=== PATIENT | female | born 1990 | race Two or more races ===

== ENCOUNTER 2016-10-17 19:50 | Emergency (ER) | payer SELFPAY ==
[2016-10-17 21:05] VITALS: BP 102/60
== END 2016-10-17 23:28 | disposition left against medical advice (07) ==
LOC: ER 19:50
DX: Z53.21 Procedure and treatment not carried out due to patient leaving prior to being seen by health care provider (principal)

== ENCOUNTER 2016-10-23 19:12 | Emergency (ER) | payer BC ==
[2016-10-23] MEDS ORDERED: NORMAL SALINE 1000 ML 1,000 ML IV ONE ×2 (19:24→23:18)
[2016-10-23] MEDS ORDERED: LORAZEPAM INJ 2 MG/1 ML VIAL IV ONE ×2 (19:24→20:29)
--- NOTE | 2016-10-23 19:27 | ER Document Report ---
ED Seizure - General Chief Complaint: Seizure Stated Complaint: POSSIBLE SEIZURE Mode of Arrival: Medic Information source: Patient Notes: Patient is a 25-year-old female with a history of epilepsy who presents to the ER today for 4 seizures at work today. Patient states that the longest one was approximately 3 minutes she was told by coworkers and that she had shaking but no loss of bladder or bowel function. She was taking Dilantin but her neurologist recently took her off of that via phone call with the nurse as she called stating that she was having multiple seizures [id number] and he advised coming into the office but stopping the Dilantin at this time. She states that she has admitted in the office to see him yet. She's never been on any other seizure medication. She admits to slight headache at this time and states that she "feels shaky" but otherwise declines nausea, vomiting, no weakness or numbness. - Related Data Allergies/Adverse Reactions: Penicillins Allergy (Severe, Verified 07/24/16 17:51) Past Medical History - General Information source: Patient - Social History Smoking Status: Unknown if Ever Smoked Family History: Reviewed & Not Pertinent Neurological Medical History: Reports: Hx Migraine, Hx Seizures Psychiatric Medical History: Reports: Hx Attention Deficit Hyperactivity Disorder - Immunizations Immunizations up to date: Yes Hx Diphtheria, Pertussis, Tetanus Vaccination: Yes Review of Systems - Review of Systems Constitutional: No symptoms reported EENT: No symptoms reported Cardiovascular: No symptoms reported Respiratory: No symptoms reported Gastrointestinal: No symptoms reported Genitourinary: No symptoms reported Female Genitourinary: No symptoms reported Musculoskeletal: No symptoms reported Skin: No symptoms reported Hematologic/Lymphatic: No symptoms reported Neurological/Psychological: See HPI Physical Exam - Vital signs Vitals: Temp 98.4 F 10/23/16 19:20 - Notes Notes: PHYSICAL EXAMINATION: GENERAL: tired appearing, but alert and in no acute distress. HEAD: Atraumatic, normocephalic. EYES: Pupils equal round and reactive to light, extraocular movements intact, sclera anicteric, conjunctiva are normal. NECK: Normal range of motion, supple without lymphadenopathy LUNGS: CTAB and equal. No wheezes rales or rhonchi. HEART: Regular rate and rhythm without murmurs ABDOMEN: Soft, no tenderness. No guarding, no rebound BACK: no vertebral tenderness, normal ROM GI/: no CVA tenderness EXTREMITIES: Normal range of motion, no pitting edema. No cyanosis. NEUROLOGICAL: Good and equal strength bilaterally, Cranial nerves grossly intact. Normal sensory/motor exams. PSYCH: Normal mood, normal affect. SKIN: Warm, Dry, normal turgor, no rashes or lesions noted Course - Re-evaluation Re-evalutation: 10/24/16 00:29 Patient was given 2 small doses of Ativan she stated that she felt shaky and "felt a seizure coming on." Patient has not had a seizure here and has had 2 L of fluids, stating that her headache is completely gone, however patient's blood pressure has been low with her laying flat in the bed and sleeping. We have had to wake her up several times and sent her in the bed which always raises her blood pressure to normal. She is now walking around the emergency department without any issue, blood pressure is normalized. Patient was also given a loading dose IV of Keppra here. I will send her home on Keppra. 10/24/16 00:32 - Vital Signs Vital signs: Temp Pulse Resp BP Pulse Ox 98.4 F 14 107/68 100 10/23/16 19:20 10/23/16 23:56 10/23/16 23:56 10/23/16 23:56 - Laboratory Result Diagrams: 10/23/16 20:04 10/23/16 20:04 Laboratory results interpreted by me: 10/23/16 10/23/16 20:04 20:04 Eosinophils % 10.0 H Absolute Eosinophils 0.8 H BUN 6 L Discharge - Discharge Clinical Impression: Seizure Condition: Stable Disposition: HOME, SELF-CARE Additional Instructions: Return immediately for any new or worsening symptoms. Follow up with neurologist, call tomorrow to make followup appointment. Prescriptions: Levetiracetam [Keppra] 500 mg PO BID #28 tablet Forms: Return to Work
[2016-10-23 20:13] LABS: ABSOLUTE EOSINOPHILS # (AUTO) 0.8 10^3/uL (0.0-0.6); ABSOLUTE LYMPHOCYTES (AUTO) 2.6 10^3/uL (0.5-4.7); ABSOLUTE MONOCYTES (AUTO) 0.8 10^3/uL (0.1-1.4); BASOPHILS % (AUTO) 0.6 % (0-2); HEMATOCRIT 40.6 % (36.0-47.0); HEMOGLOBIN 13.9 g/dL (12.0-15.5); HGB HCT DIFFERENCE 1.1; LYMPHOCYTES % (AUTO) 31.6 % (13-45); MEAN CORPUSCULAR HEMOGLOBIN 30.8 pg (27.0-33.4); MEAN CORPUSCULAR HGB CONC 34.1 g/dL (32.0-36.0); MEAN CORPUSCULAR VOLUME 90 fl (80-97); MONOCYTES % (AUTO) 9.2 % (3-13); RED BLOOD COUNT 4.49 10^6/uL (3.72-5.28); RED CELL DISTRIBUTION WIDTH 13.6 % (11.5-14.0); SEGMENTED NEUTROPHILS % (AUTO) 48.6 % (42-78); WHITE BLOOD COUNT 8.3 10^3/uL (4.0-10.5)
[2016-10-23 20:30] LABS: ALANINE AMINOTRANSFERASE 22 U/L (9-52); ALBUMIN 4.4 g/dL (3.5-5.0); ALKALINE PHOSPHATASE 42 U/L (38-126); ANION GAP 9 (5-19); ASPARTATE AMINO TRANSFERASE 21 U/L (14-36); BILIRUBIN,TOTAL 0.6 mg/dL (0.2-1.3); BLOOD UREA NITROGEN 6 mg/dL (7-20); CALCIUM 9.7 mg/dL (8.4-10.2); CARBON DIOXIDE 24 mmol/L (22-30); CHLORIDE 105 mmol/L (98-107); CREATININE RESULT 0.77 mg/dL (0.52-1.25); GLUCOSE 89 mg/dL (75-110); POTASSIUM 4.2 mmol/L (3.6-5.0); SODIUM 138.3 mmol/L (137-145)
[2016-10-23] MEDS ORDERED: LEVETIRACETAM 1500 MG/NACL-ISO 100 ML IV ONE (21:00)
[2016-10-24 00:39] VITALS: BP 100/66
== END 2016-10-24 00:50 | disposition home or self-care (01) ==
LOC: ER 19:12
DX: G40.909 Epilepsy, unspecified, not intractable, without status epilepticus (principal); R51 Headache; Z88.0 Allergy status to penicillin
CPT/HCPCS: 96376; 99284; 96361; 96374; 96375; 36415; 84703; 85025; 80053; J2060; J7030; J1953

== ENCOUNTER 2016-11-22 16:59 | Emergency (ER) | payer BC ==
--- NOTE | 2016-11-22 17:44 | ER Document Report ---
ED Medical Screen (RME) - General Stated Complaint: POSSIBLE SEIZURE Notes: patient is a 25 year old female p/w c/o seizure and has had 5 seizures while on keppra that she was started on when she was last seen here. she has not followed up with her neurologist since she started the medication. she is due to see her neurologist on friday I have greeted and performed a rapid initial assessment of this patient. A comprehensive ED assessment and evaluation of the patient, analysis of test results and completion of the medical decision making process will be conducted by additional ED providers. TRAVEL OUTSIDE OF THE [place] IN LAST 30 DAYS: No - Related Data Allergies/Adverse Reactions: Penicillins Allergy (Severe, Verified 11/22/16 17:42) Past Medical History Neurological Medical History: Reports: Hx Migraine, Hx Seizures Renal/ Medical History: Denies: Hx Peritoneal Dialysis Psychiatric Medical History: Reports: Hx Attention Deficit Hyperactivity Disorder Past Surgical History: Reports: Hx Orthopedic Surgery - R leg - Immunizations Immunizations up to date: Yes Hx Diphtheria, Pertussis, Tetanus Vaccination: Yes Physical Exam - Vital signs Vitals: Temp Pulse Resp BP Pulse Ox 97.9 F 63 14 102/53 L 99 11/22/16 17:24 11/22/16 17:24 11/22/16 17:24 11/22/16 17:24 11/22/16 17:24 Course - Vital Signs Vital signs: Temp Pulse Resp BP Pulse Ox 97.9 F 63 14 102/53 L 99 11/22/16 17:24 11/22/16 17:24 11/22/16 17:24 11/22/16 17:24 11/22/16 17:24
[2016-11-22 18:25] LABS: ABSOLUTE BASOPHILS # (AUTO) 0.1 10^3/uL (0.0-0.2); ABSOLUTE EOSINOPHILS # (AUTO) 0.6 10^3/uL (0.0-0.6); ABSOLUTE LYMPHOCYTES (AUTO) 1.8 10^3/uL (0.5-4.7); ABSOLUTE MONOCYTES (AUTO) 0.6 10^3/uL (0.1-1.4); BASOPHILS % (AUTO) 0.7 % (0-2); EOSINOPHILS % (AUTO) 7.8 % (0-6); HEMOGLOBIN 13.4 g/dL (12.0-15.5); HGB HCT DIFFERENCE 0.2; LYMPHOCYTES % (AUTO) 22.3 % (13-45); MEAN CORPUSCULAR HEMOGLOBIN 30.8 pg (27.0-33.4); MEAN CORPUSCULAR HGB CONC 33.5 g/dL (32.0-36.0); MEAN CORPUSCULAR VOLUME 92 fl (80-97); RED BLOOD COUNT 4.35 10^6/uL (3.72-5.28); RED CELL DISTRIBUTION WIDTH 13.2 % (11.5-14.0); SEGMENTED NEUTROPHILS % (AUTO) 62.2 % (42-78)
[2016-11-22 18:45] LABS: ALANINE AMINOTRANSFERASE 21 U/L (9-52); ALKALINE PHOSPHATASE 49 U/L (38-126); ANION GAP 8 (5-19); ASPARTATE AMINO TRANSFERASE 20 U/L (14-36); BILIRUBIN,TOTAL 0.5 mg/dL (0.2-1.3); BLOOD UREA NITROGEN 12 mg/dL (7-20); CALCIUM 9.5 mg/dL (8.4-10.2); CARBON DIOXIDE 26 mmol/L (22-30); CHLORIDE 104 mmol/L (98-107); CREATININE RESULT 0.93 mg/dL (0.52-1.25); GLUCOSE 84 mg/dL (75-110); POTASSIUM 4.2 mmol/L (3.6-5.0); SODIUM 137.8 mmol/L (137-145); TOTAL PROTEIN 7.3 g/dL (6.3-8.2)
[2016-11-22] MEDS ORDERED: NORMAL SALINE 1000 ML 1,000 ML IV ONE (20:41)
[2016-11-22] MEDS ORDERED: LEVETIRACETAM 1000 MG/NACL-ISO 100 ML IV ONE (20:41)
--- NOTE | 2016-11-22 20:44 | ER Document Report ---
ED Seizure - General Chief Complaint: Seizure Stated Complaint: POSSIBLE SEIZURE Time seen by provider: 20:40 Notes: Patient is a 25-year-old female with a history of epilepsy that comes emergency department for chief complaint of seizure, patient states she was told that she had 2 separate seizures which lasted a total of about 5 minutes at work prior to arrival. Patient states she felt a numbness in her hands and laid down before the seizures occurred. She denies remembering the seizures. Patient is taking Keppra 1000 g twice a day, was given Keppra here last month and had this increased by her primary care provider, has a follow-up appointment with neurology planned for next week (Friday), has not seen a neurologist in years. Patient states she had not had a seizure for over a year until last month and was not even on Dilantin. Patient denies fever, lack of sleep, regular alcohol use, or any other symptoms out of the ordinary. She denies any current symptoms. - Related Data Allergies/Adverse Reactions: Penicillins Allergy (Severe, Verified 11/22/16 17:42) Past Medical History - General Information source: Patient - Social History Smoking Status: Current Every Day Smoker Chew tobacco use (# tins/day): No Frequency of alcohol use: Occasional Drug Abuse: None Lives with: Family Family History: Reviewed & Not Pertinent Patient has suicidal ideation: No Patient has homicidal ideation: No Neurological Medical History: Reports: Hx Migraine, Hx Seizures Renal/ Medical History: Denies: Hx Peritoneal Dialysis Psychiatric Medical History: Reports: Hx Attention Deficit Hyperactivity Disorder Past Surgical History: Reports: Hx Orthopedic Surgery - R leg - Immunizations Immunizations up to date: Yes Hx Diphtheria, Pertussis, Tetanus Vaccination: Yes Review of Systems - Review of Systems Constitutional: No symptoms reported EENT: No symptoms reported Cardiovascular: No symptoms reported Respiratory: No symptoms reported Gastrointestinal: No symptoms reported Genitourinary: No symptoms reported Female Genitourinary: No symptoms reported Musculoskeletal: No symptoms reported Skin: No symptoms reported Hematologic/Lymphatic: No symptoms reported Neurological/Psychological: See HPI Physical Exam - Vital signs Vitals: Temp Pulse Resp BP Pulse Ox 97.9 F 63 14 102/53 L 99 11/22/16 17:24 11/22/16 17:24 11/22/16 17:24 11/22/16 17:24 11/22/16 17:24 Interpretation: Normal - General General appearance: Appears well, Alert In distress: None - Patient alert and well-appearing, conversational - HEENT Head: Normocephalic, Atraumatic Eyes: Normal Conjunctiva: Normal Extraocular movements intact: Yes Eyelashes: Normal Pupils: PERRL Nasal: Normal Mouth/Lips: Normal Mucous membranes: Normal Pharynx: Normal Neck: Normal - Respiratory Respiratory status: No respiratory distress Chest status: Nontender Breath sounds: Normal. No: Decreased air movement, Wheezing Chest palpation: Normal - Cardiovascular Rhythm: Regular. No: Tachycardia Heart sounds: Normal auscultation, S1 appreciated, S2 appreciated Murmur: No - Abdominal Inspection: Normal Distension: No distension Bowel sounds: Normal Tenderness: Nontender. No: Tender, Guarding - Back Back: Normal, Nontender. 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 Unremarkable vital signs. CBC, CMP, magnesium all unremarkable. HCG is negative. Urinalysis obtained, shows positive nitrites, white blood cells, leukocyte esterase, consistent with urinary tract infection. Culture place, patient given a dose of Levaquin here, patient also given a IV loading dose of Keppra, Keppra lab level is still pending as a send out. Patient monitored here for several hours, no change, no complaints. Patient will be placed on Cipro, instructed to continue Keppra, patient has a close follow-up arranged with her neurologist already. Discussed return precautions including returned/increased seizures, fever, vomiting, etc. Patient states understanding and agreement. - Vital Signs Vital signs: Temp Pulse Resp BP Pulse Ox 98.9 F 78 19 104/55 L 100 11/23/16 00:11 11/23/16 00:11 11/23/16 00:11 11/23/16 00:11 11/23/16 00:11 - Laboratory Result Diagrams: 11/22/16 18:05 11/22/16 18:05 Laboratory results interpreted by me: 11/22/16 11/22/16 18:05 21:50 Eosinophils % 7.8 H Urine Nitrite POSITIVE H Ur Leukocyte Esterase SMALL H Discharge - Discharge Clinical Impression: Seizure disorder Urinary tract infection Qualifiers: Urinary tract infection type: site unspecified Hematuria presence: without hematuria Qualified Code(s): N39.0 - Urinary tract infection, site not specified Condition: Stable Disposition: HOME, SELF-CARE Additional Instructions: Workup is normal except showing a urinary tract infection. Your Keppra level blood work is still running in our laboratory (send out lab which can take days) . Take the antibiotic as directed for urinary tract infection, afterwards take the Diflucan to avoid a yeast infection. Continue your Keppra, follow up with Neurology on Friday. Return to the emergency department for any concerning or worsening symptoms. Prescriptions: Ciprofloxacin HCl [Cipro 500 mg Tablet] 500 mg PO BID #10 tablet Fluconazole [Diflucan] 150 mg PO ONCE PRN #1 tablet PRN Reason: Forms: Return to Work
[2016-11-22 20:53] LABS: MAGNESIUM 2.1 mg/dL (1.6-2.3)
[2016-11-22 20:55] LABS: ALCOHOL < 10 mg/dL (NONE DETECTED)
[2016-11-22 22:05] LABS: APPEARANCE,URINE SLIGHTLY-CLOUDY; BILIRUBIN,URINE NEGATIVE (NEGATIVE); GLUCOSE, URINE NEGATIVE (NEGATIVE); KETONES,URINE NEGATIVE (NEGATIVE); LEUKOCYTE ESTERASE,URINE SMALL (NEGATIVE); NITRITE,URINE POSITIVE (NEGATIVE); PROTEIN,URINE NEGATIVE (NEGATIVE); URINE SPECIFIC GRAVITY 1.012; UROBILINOGEN,URINE NEGATIVE mg/dL (<2.0)
[2016-11-22] MEDS ORDERED: LEVOFLOXACIN 500 MG/D5W RTU 100 ML IV ONE (22:20)
[2016-11-23] MEDS ORDERED: LEVOFLOXACIN 500 MG TABLET PO ONE (00:01)
[2016-11-23 00:12] VITALS: BP 104/55
== END 2016-11-23 00:10 | disposition home or self-care (01) ==
LOC: ER 16:59
DX: G40.909 Epilepsy, unspecified, not intractable, without status epilepticus (principal); Z79.899 Other long term (current) drug therapy; N39.0 Urinary tract infection, site not specified; F17.200 Nicotine dependence, unspecified, uncomplicated; Z88.0 Allergy status to penicillin
CPT/HCPCS: 36415; 80053; 80177; 80307; 81001; 83735; 84703; 85025; 87086; 87088; 87186; 99284

== ENCOUNTER → 2016-12-06 | Outpatient (CLI) | payer BC | LOC: RAD 19:16 | PROVIDERS: ATTEND Specialist | DX: G40.909 Epilepsy, unspecified, not intractable, without status epilepticus (principal) | CPT/HCPCS: 70553; A9577 ==

== ENCOUNTER 2017-10-01 09:39 | Emergency (ER) | payer SELFPAY ==
[2017-10-01] MEDS ORDERED: LIDOCAINE 2% VISCOUS SOLN 20 ML UDCUP PO ONE (10:00)
[2017-10-01] MEDS ORDERED: CLINDAMYCIN HCL 150 MG CAPSULE PO ONE (10:00)
--- NOTE | 2017-10-01 10:01 | ER Document Report ---
ED Oral Problem - General Chief Complaint: Toothache Stated Complaint: TOOTH PAIN Time Seen by Provider: 10/01/17 09:50 Mode of Arrival: Ambulatory Information source: Patient Notes: 26-year-old female presents to ED for complaint of dental pain for 6 months on tooth #18 the last 6 months. She states she needs to get it fixed but has not had the insurance to pay for it yet. TRAVEL OUTSIDE OF THE [place] IN LAST 30 DAYS: No - HPI Patient complains to provider of: Toothache Onset: Other - Month Onset: Gradual Quality of pain: Achy, Throbbing Severity: Severe Pain Level: 5 Associated symptoms: Earache - Due to the, Toothache Worsened by: Nothing Relieved by: Nothing Similar symptoms previously: Yes Recently seen / treated by doctor/dentist: No - Related Data Allergies/Adverse Reactions: Penicillins Allergy (Severe, Verified 10/01/17 09:39) Past Medical History - General Information source: Patient - Social History Smoking Status: Current Every Day Smoker Cigarette use (# per day): Yes - Third pack per day Chew tobacco use (# tins/day): No Smoking Education Provided: Yes - Less than 2 minutes Frequency of alcohol use: None Drug Abuse: None Occupation: [employer] Lives with: Family Family History: Arthritis, DM, Hypertension, Malignancy. denies: CAD, COPD, CVA , Hyperlipidemia, Thyroid Disfunction Patient has suicidal ideation: No Patient has homicidal ideation: No - Past Medical History Cardiac Medical History: Reports: None Pulmonary Medical History: Reports: None EENT Medical History: Reports: None Neurological Medical History: Reports: Hx Migraine, Hx Seizures Endocrine Medical History: Reports: None Renal/ Medical History: Reports: None Malignancy Medical History: Reports: None GI Medical History: Reports: None Musculoskeltal Medical History: Reports None Skin Medical History: Reports None Psychiatric Medical History: Reports: Hx Attention Deficit Hyperactivity Disorder Traumatic Medical History: Reports: None Infectious Medical History: Reports: None Past Surgical History: Reports: Hx Orthopedic Surgery - R leg - Immunizations Immunizations up to date: Yes Hx Diphtheria, Pertussis, Tetanus Vaccination: Yes Review of Systems - Review of Systems Constitutional: No symptoms reported EENT: Ear pain, Dental problem Cardiovascular: No symptoms reported Respiratory: No symptoms reported Gastrointestinal: No symptoms reported Genitourinary: No symptoms reported Female Genitourinary: No symptoms reported Musculoskeletal: No symptoms reported Skin: No symptoms reported Hematologic/Lymphatic: No symptoms reported Neurological/Psychological: No symptoms reported -: Yes All other systems reviewed and negative Physical Exam - Vital signs Vitals: Temp Pulse Resp BP Pulse Ox 98.6 F 85 12 117/64 98 10/01/17 09:45 10/01/17 09:45 10/01/17 09:45 10/01/17 09:45 10/01/17 09:45 Interpretation: Normal - General General appearance: Appears well, Alert - HEENT Head: Normocephalic, Atraumatic Eyes: Normal Pupils: PERRL Ears: Normal External canal: Normal Tympanic membrane: Normal Sinus: Normal Nasal: Normal Mouth/Lips: Caries Teeth diagram: 1 - Dental cavity Pharynx: Normal Neck: Normal - Respiratory Respiratory status: No respiratory distress Chest status: Nontender Breath sounds: Normal Chest palpation: Normal - Cardiovascular Rhythm: Regular Heart sounds: Normal auscultation Murmur: No - Abdominal Inspection: Normal Distension: No distension Bowel sounds: Normal Tenderness: Nontender Organomegaly: No organomegaly - Back Back: Normal, Nontender - Extremities General upper extremity: Normal inspection, Nontender, Normal color, Normal ROM , Normal temperature General lower extremity: Normal inspection, Nontender, Normal color, Normal ROM , Normal temperature, Normal weight bearing. No: Lyndsay's sign - Neurological Neuro grossly intact: Yes Cognition: Normal Orientation: AAOx4 Payal Coma Scale Eye Opening: Spontaneous [place] Coma Scale Verbal: Oriented [place] Coma Scale Motor: Obeys Commands [place] Coma Scale Total: 15 Speech: Normal Motor strength normal: LUE, RUE, LLE, RLE Sensory: Normal - Psychological Associated symptoms: Normal affect, Normal mood - Skin Skin Temperature: Warm Skin Moisture: Dry Skin Color: Normal Course - Vital Signs Vital signs: Temp Pulse Resp BP Pulse Ox 98.6 F 73 18 116/71 99 10/01/17 10:22 10/01/17 10:22 10/01/17 10:22 10/01/17 10:22 10/01/17 10:22 Discharge - Discharge Clinical Impression: Pain due to dental caries Condition: Stable Disposition: HOME, SELF-CARE Instructions: Dentist Additional Instructions: TOOTHACHE: Your pain is due to dental decay. The tooth must be repaired in order for you to feel better. You will, therefore, be referred to a dentist. We do not have dentists on the staff at [facility]. Severe swelling or drainage around a tooth usually means a dental abscess. This also requires evaluation and treatment by the dentist, but antibiotics may be prescribed while awaiting dental treatment. You should be rechecked immediately if you develop major swelling of the face, increasing pain, a lump in the jaw or gums, headache, difficulty swallowing, or fever. CLINDAMYCIN: You have been given a prescription for the antibiotic clindamycin. It is often prescribed for infections in the mouth, such as dental infections or abscesses, and for skin infections due to MRSA. It's important that you take all the medication, unless instructed otherwise by your physician. Failure to complete the entire course can result in relapse of your condition. Common side effects of antibiotics include nausea, intestinal cramping, or diarrhea. Women may develop vaginal yeast infections, and babies can get yeast (thrush) in the mouth following the use of antibiotics. Contact your physician if you develop significant side effects from this medication. Allergy to this antibiotic can result in hives, wheezing, faintness, or itching. If symptoms of allergy occur, stop the medication and call the doctor. FOLLOW-UP CARE: You have been referred for follow-up care to the dentists listed below. Call the dentists office for an appointment as you were instructed or within the next two days. If you experience worsening or a significant change in your symptoms, notify the physician immediately or return to the Emergency Department at any time for re-evaluation. [facility] [address] [place], [place] Friday mornings, by appointment [facility] [address] [place] [address] [facility] [address] [facility] [address] [place] Emergency Department [facility] [address] [place] [address]'s [email or web address] [address] [place] [address] Friday- 8:00am to 5:00 pm Will see patients from other [facility]. Charges based on income and family size and accepts Medicare, Medicaid, and Insurances Will pull molars [facility] Student [facility] [id number] Hours of Operation 8:00 am - 4:30 pm weekdays The following dental offices accept Medicaid: [facility] [address] [place] Dr[address] Dr. Ann Dr. Hill Arslan Lyle, Bubba, and Cora oral surgery Dr. Aguilera ([place]) Dr. Gotti ([place]) [facility] Drs. Kowalski and Rafat ([place]) Dr. Grover ([place]) [facility] Dr. C[place]ton ([place]) Drs. Kowalski and ([place]) Medicaid Care Line Forms: Smoking Cessation Education, Return to Work
[2017-10-01 10:29] VITALS: BP 116/71
== END 2017-10-01 10:22 | disposition home or self-care (01) ==
LOC: ER 09:39
DX: K02.9 Dental caries, unspecified (principal); K08.89 Other specified disorders of teeth and supporting structures; F17.210 Nicotine dependence, cigarettes, uncomplicated
CPT/HCPCS: 99282; J3490

== ENCOUNTER 2018-04-07 15:17 | Emergency (ER) | payer SELFPAY ==
[2018-04-07] MEDS ORDERED: RINGERS SOLUTION,LACTATED 1,000 ML IV ONE (15:52)
--- NOTE | 2018-04-07 15:54 | ER Document Report ---
ED General - General Chief Complaint: Seizure Stated Complaint: NEAR SYNCOPAQL EPISODE Time Seen by Provider: 04/07/18 15:51 Mode of Arrival: Ambulatory Information source: Patient Notes: Chief complaint: Syncope History of complain:( obtained from----patient)27 years old female presents today with an episode of syncope, she has a molar tooth cavitation because of that she could not eat anything proper for the last 3-4 days. And went to work and working hard and one-point started feeling dizzy. Went to the banners this to inform that during that time she syncopized. Briefly. Subsequently brought to the ED. She is currently alert oriented. No head injury. No neck pain neck stiffness. No focal neurological deficit. Onset: As above Duration: Sudden Severity: Moderate Quality: Not applicable Context: Dehydration Exacerbating factor and relieving factors: Standing up REVIEW OF SYSTEMS: CONSTITUTIONAL : Denies fever, chills, or sweats. Denies recent illness. EENT: Denies eye, ear, throat, or mouth pain or symptoms. Denies nasal or sinus congestion or discharge. Denies throat, tongue, or mouth swelling or difficulty swallowing. CARDIOVASCULAR: Denies chest pain. Denies palpitations or racing or irregular heart beat. Denies ankle edema. RESPIRATORY: Denies cough, cold, or chest congestion. Denies shortness of breath, difficulty breathing, or wheezing. GASTROINTESTINAL: Denies distention. Denies nausea, vomiting, or diarrhea. Denies blood in vomitus, stools, or per rectum. Denies black, tarry stools. Denies constipation. GENITOURINARY: Denies difficulty urinating, painful urination, burning, frequency, blood in urine, or discharge. FEMALE GENITOURINARY: Denies vaginal bleeding, heavy or abnormal periods, irregular periods. Denies vaginal discharge or odor. MUSCULOSKELETAL: Denies back or neck pain or stiffness. Denies joint pain or swelling. SKIN: Denies rash, lesions or sores. HEMATOLOGIC : Denies easy bruising or bleeding. LYMPHATIC: Denies swollen, enlarged glands. NEUROLOGICAL: Denies confusion or altered mental status. Denies passing out or loss of consciousness. Denies dizziness or lightheadedness. Denies headache. Denies weakness or paralysis or loss of use of either side. Denies problems with gait or speech. Denies sensory loss, numbness, or tingling. Denies seizures. PSYCHIATRIC: Denies anxiety or stress. Denies depression, suicidal ideation, or homicidal ideation. ALL OTHER SYSTEMS REVIEWED AND NEGATIVE. PHYSICAL EXAMINATION: GENERAL: Well-appearing, well-nourished and in no acute distress. HEAD: Atraumatic, normocephalic. EYES: Pupils equal round and reactive to light, extraocular movements intact, conjunctiva are normal. ENT: Nares patent, oropharynx clear without exudates. Moist mucous membranes. NECK: Normal range of motion, supple without lymphadenopathy LUNGS: Breath sounds clear to auscultation bilaterally and equal. No wheezes rales or rhonchi. HEART: Regular rate and rhythm without murmurs ABDOMEN: Soft, nontender, nondistended abdomen. No guarding, no rebound. No masses appreciated. Examination of genitals-deferred Musculoskeletal: Normal range of motion, no pitting or edema. No cyanosis. NEUROLOGICAL: Cranial nerves grossly intact. Normal speech, normal gait. Normal sensory, motor exams PSYCH: Normal mood, normal affect. SKIN: Warm, Dry, normal turgor, no rashes or lesions noted. Dictation was performed using [employer] voice recognition software TRAVEL OUTSIDE OF THE [place] IN LAST 30 DAYS: No - Related Data Allergies/Adverse Reactions: Penicillins Allergy (Severe, Verified 04/07/18 15:53) Past Medical History - Social History Smoking Status: Current Every Day Smoker Chew tobacco use (# tins/day): No Frequency of alcohol use: Rare Drug Abuse: None Family History: Arthritis, DM, Hypertension, Malignancy. denies: CAD, COPD, CVA , Hyperlipidemia, Thyroid Disfunction Patient has suicidal ideation: No Patient has homicidal ideation: No Neurological Medical History: Reports: Hx Migraine, Hx Seizures Renal/ Medical History: Denies: Hx Peritoneal Dialysis Psychiatric Medical History: Reports: Hx Attention Deficit Hyperactivity Disorder Past Surgical History: Reports: Hx Orthopedic Surgery - R leg - Immunizations Immunizations up to date: Yes Hx Diphtheria, Pertussis, Tetanus Vaccination: Yes Review of Systems - Review of Systems Notes: Dictated Physical Exam - Vital signs Vitals: Temp Pulse Resp BP Pulse Ox 98.5 F 66 16 100/59 L 99 04/07/18 15:57 04/07/18 15:57 04/07/18 15:57 04/07/18 15:57 04/07/18 15:57 - Notes Notes: Dictated Course - Re-evaluation Re-evalutation: 04/07/18 16:50 Given IV fluids - Vital Signs Vital signs: Temp Pulse Resp BP Pulse Ox 98.5 F 66 16 100/59 L 99 04/07/18 15:57 04/07/18 15:57 04/07/18 15:57 04/07/18 15:57 04/07/18 15:57 - Laboratory Result Diagrams: 04/07/18 16:13 04/07/18 16:13 Discharge - Discharge Clinical Impression: Dehydration, Pain, dental Syncope Qualifiers: Syncope type: vasovagal syncope Qualified Code(s): R55 - Syncope and collapse Disposition: AGAINST MEDICAL ADVICE
[2018-04-07 16:04] VITALS: BP 100/59
[2018-04-07 16:30] LABS: ABSOLUTE EOSINOPHILS # (AUTO) 0.4 10^3/uL (0.0-0.6); ABSOLUTE LYMPHOCYTES (AUTO) 1.9 10^3/uL (0.5-4.7); ABSOLUTE MONOCYTES (AUTO) 0.6 10^3/uL (0.1-1.4); ABSOLUTE NEUT (AUTO) 4.9 10^3/uL (1.7-8.2); BASOPHILS % (AUTO) 0.4 % (0-2); HEMATOCRIT 37.3 % (36.0-47.0); HEMOGLOBIN 12.4 g/dL (12.0-15.5); LYMPHOCYTES % (AUTO) 24.4 % (13-45); MEAN CORPUSCULAR HGB CONC 33.3 g/dL (32.0-36.0); MEAN CORPUSCULAR VOLUME 93 fl (80-97); MONOCYTES % (AUTO) 8.1 % (3-13); PLATELET COUNT 216 10^3/uL (150-450); RED BLOOD COUNT 4.01 10^6/uL (3.72-5.28); RED CELL DISTRIBUTION WIDTH 13.4 % (11.5-14.0); SEGMENTED NEUTROPHILS % (AUTO) 62.1 % (42-78); TOTAL CELLS COUNTED % (AUTO) 100 %; WHITE BLOOD COUNT 7.9 10^3/uL (4.0-10.5)
== END 2018-04-07 16:57 | disposition left against medical advice (07) ==
LOC: ER 15:17
DX: E86.0 Dehydration (principal); K08.9 Disorder of teeth and supporting structures, unspecified; R55 Syncope and collapse; R42 Dizziness and giddiness; F17.200 Nicotine dependence, unspecified, uncomplicated
CPT/HCPCS: 99284; 96360; 36415; 85025; J7120

== ENCOUNTER 2018-05-29 13:37 | Emergency (ER) | payer SELFPAY ==
[2018-05-29 13:55] VITALS: BP 104/54
[2018-05-29] MEDS ORDERED: IBUPROFEN 600 MG TABLET PO ONE (14:28)
[2018-05-29] MEDS ORDERED: CLINDAMYCIN HCL 150 MG CAPSULE PO ONE (14:28)
[2018-05-29] MEDS ORDERED: BUPIVACAINE HCL 0.5%-EPI 1:200000 INJ/PF 30 ML VIAL INJ ONE (14:48)
--- NOTE | 2018-05-29 14:48 | ER Document Report ---
ED Oral Problem - General Chief Complaint: Toothache Stated Complaint: TOOTHACHE Time Seen by Provider: 05/29/18 14:22 Mode of Arrival: Ambulatory Information source: Patient Notes: 27-year-old female presented ED for complaint of dental pain to tooth number form 5 with a dental abscess between them. She states she has had pain in this area for a while. She states the abscess just developed in the last couple days and now she is having extreme pain to the area. She is alert and oriented respirations regular and unlabored speaking in full sentences. TRAVEL OUTSIDE OF THE [place] IN LAST 30 DAYS: No - HPI Patient complains to provider of: Jaw pain, Toothache Onset: Other - Several days Onset: Gradual Quality of pain: Sharp, Throbbing Severity: Severe Pain Level: 5 Associated symptoms: Toothache Worsened by: Heat Relieved by: Nothing Similar symptoms previously: Yes Recently seen / treated by doctor/dentist: No - Related Data Allergies/Adverse Reactions: Penicillins Allergy (Severe, Verified 04/07/18 15:53) Past Medical History - General Information source: Patient - Social History Smoking Status: Current Every Day Smoker Cigarette use (# per day): Yes - 1/3 ppd Smoking Education Provided: Yes - 4 min Frequency of alcohol use: None Drug Abuse: None 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 denies: CAD, COPD, CVA , Hyperlipidemia, Thyroid Disfunction Patient has suicidal ideation: No Patient has homicidal ideation: No - Past Medical History Cardiac Medical History: Reports: None Pulmonary Medical History: Reports: None EENT Medical History: Reports: None Neurological Medical History: Reports: Hx Migraine, Hx Seizures Endocrine Medical History: Reports: None Renal/ Medical History: Reports: None Malignancy Medical History: Reports: None GI Medical History: Reports: None Musculoskeletal Medical History: Reports None Skin Medical History: Reports None Psychiatric Medical History: Reports: Hx Attention Deficit Hyperactivity Disorder Traumatic Medical History: Reports: None Infectious Medical History: Reports: None Past Surgical History: Reports: Hx Orthopedic Surgery - R leg - Immunizations Immunizations up to date: Yes Hx Diphtheria, Pertussis, Tetanus Vaccination: Yes Review of Systems - Review of Systems Constitutional: No symptoms reported EENT: Mouth pain, Dental problem Cardiovascular: No symptoms reported Respiratory: No symptoms reported Gastrointestinal: No symptoms reported Genitourinary: No symptoms reported Female Genitourinary: No symptoms reported Musculoskeletal: No symptoms reported Skin: No symptoms reported Hematologic/Lymphatic: No symptoms reported Neurological/Psychological: No symptoms reported -: Yes All other systems reviewed and negative Physical Exam - Vital signs Vitals: Temp Pulse Resp BP Pulse Ox 98.5 F 71 18 104/54 L 96 05/29/18 13:53 05/29/18 13:53 05/29/18 13:53 05/29/18 13:53 05/29/18 13:53 Interpretation: Normal - General General appearance: Appears well, Alert - HEENT Head: Normocephalic, Atraumatic Eyes: Normal Pupils: PERRL Ears: Normal External canal: Normal Tympanic membrane: Normal Sinus: Normal Nasal: Normal Mouth/Lips: Caries Mucous membranes: Normal Teeth diagram: 1 - Swelling tenderness dental abscess Pharynx: Normal Neck: Anterior cervical chain - Respiratory Respiratory status: No respiratory distress Chest status: Nontender Breath sounds: Normal Chest palpation: Normal - Cardiovascular Rhythm: Regular Heart sounds: Normal auscultation Murmur: No - Abdominal Inspection: Normal Distension: No distension Bowel sounds: Normal Tenderness: Nontender Organomegaly: No organomegaly - Back Back: Normal, Nontender - Extremities General upper extremity: Normal inspection, Nontender, Normal color, Normal ROM , Normal temperature General lower extremity: Normal inspection, Nontender, Normal color, Normal ROM , Normal temperature, Normal weight bearing. No: Lyndsay's sign - Neurological Neuro grossly intact: Yes Cognition: Normal Orientation: AAOx4 Payal Coma Scale Eye Opening: Spontaneous Payal Coma Scale Verbal: Oriented Warden Coma Scale Motor: Obeys Commands Payal Coma Scale Total: 15 Speech: Normal Motor strength normal: LUE, RUE, LLE, RLE Sensory: Normal - Psychological Associated symptoms: Normal affect, Normal mood - Skin Skin Temperature: Warm Skin Moisture: Dry Skin Color: Normal Course - Re-evaluation Re-evalutation: 05/29/18 16:07 Dental block given by Dr. Middleton with Sensorcaine. Abscess was then opened with 18-gauge needle with return of large amount of purulent drainage. Patient was sent home with prescription for ibuprofen and clindamycin. Patient to follow- up with dentist as soon as possible. Patient was instructed to use warm salt water gargles for the abscess. - Vital Signs Vital signs: Temp Pulse Resp BP Pulse Ox 98.5 F 71 18 104/54 L 96 05/29/18 13:53 05/29/18 13:53 05/29/18 13:53 05/29/18 13:53 05/29/18 13:53 Discharge - Discharge Clinical Impression: Pain due to dental caries Condition: Stable Disposition: HOME, SELF-CARE Additional Instructions: TOOTHACHE: Your pain is due to dental decay. The tooth must be repaired in order for you to feel better. You will, therefore, be referred to a dentist. We do not have dentists on the staff at [facility]. Severe swelling or drainage around a tooth usually means a dental abscess. This also requires evaluation and treatment by the dentist, but antibiotics may be prescribed while awaiting dental treatment. You should be rechecked immediately if you develop major swelling of the face, increasing pain, a lump in the jaw or gums, headache, difficulty swallowing, or fever. CLINDAMYCIN: You have been given a prescription for the antibiotic clindamycin. It is often prescribed for infections in the mouth, such as dental infections or abscesses, and for skin infections due to MRSA. It's important that you take all the medication, unless instructed otherwise by your physician. Failure to complete the entire course can result in relapse of your condition. Common side effects of antibiotics include nausea, intestinal cramping, or diarrhea. Women may develop vaginal yeast infections, and babies can get yeast (thrush) in the mouth following the use of antibiotics. Contact your physician if you develop significant side effects from this medication. Allergy to this antibiotic can result in hives, wheezing, faintness, or itching. If symptoms of allergy occur, stop the medication and call the doctor. FOLLOW-UP CARE: You have been referred for follow-up care to the dentists listed below. Call the dentists office for an appointment as you were instructed or within the next two days. If you experience worsening or a significant change in your symptoms, notify the physician immediately or return to the Emergency Department at any time for re-evaluation. [facility] [address] [phone] [facility] [address] [place] [address] [facility] [address] [facility] [address] [facility] ([facility]) [facility] [address] [email or web address] [facility] [address] [place] [address] Friday- 8:00am to 5:00 pm Will see patients from other [facility]. Charges based on income and family size and accepts Medicare, Medicaid, and Insurances Will pull molars [facility] [address] Hours of Operation 8:00 am - 4:30 pm weekdays The following dental offices accept Medicaid: [facility] Dr. [place] Dr. Solitario Dr. Ann Dr. Hill Arslan Lyle, Bubba, and Cora oral surgery Dr. Aguilera ([place]) Dr. Gotti ([place]) [facility] Drs. Moore ([place]) Dr. Grover ([place]) [facility] Dr. Covington ([place]) Drs. Kowalski and ([place]) Medicaid Care Line Prescriptions: Ibuprofen 800 mg PO Q8HP PRN #20 tablet PRN Reason: Clindamycin HCl 300 mg PO Q6 #40 capsule Forms: Return to Work
== END 2018-05-29 16:21 | disposition home or self-care (01) ==
LOC: ER 13:37
DX: K02.9 Dental caries, unspecified (principal); K04.7 Periapical abscess without sinus; K08.89 Other specified disorders of teeth and supporting structures; F17.210 Nicotine dependence, cigarettes, uncomplicated; Z71.6 Tobacco abuse counseling; Z88.0 Allergy status to penicillin
CPT/HCPCS: 99406; 99283; 64400; J3490

== ENCOUNTER 2018-05-30 13:53 | Emergency (ER) | payer SELFPAY ==
--- NOTE | 2018-05-30 14:27 | ER Document Report ---
ED Medical Screen (RME) - General Chief Complaint: Toothache Stated Complaint: TOOTH ACHE Time Seen by Provider: 05/30/18 14:26 Mode of Arrival: Ambulatory Information source: Patient Notes: 27-year-old female with dental caries was evaluated yesterday for a localized dental abscess and had a needle drainage. Patient with return to the emergency room with worsening swelling of the mandible and she states that she had swelling around the eye when she woke up. In the ER, she does have swelling around the right mandible. There is no facial swelling or erythema. Her airway is otherwise intact. She was prescribed clindamycin yesterday but has not started the medicine. She states she just picked the medicine up prior to arrival here. TRAVEL OUTSIDE OF THE [place] IN LAST 30 DAYS: No - Related Data Allergies/Adverse Reactions: Penicillins Allergy (Severe, Verified 05/30/18 13:54) Past Medical History Neurological Medical History: Reports: Hx Migraine, Hx Seizures Renal/ Medical History: Denies: Hx Peritoneal Dialysis Psychiatric Medical History: Reports: Hx Attention Deficit Hyperactivity Disorder Past Surgical History: Reports: Hx Orthopedic Surgery - R leg - Immunizations Immunizations up to date: Yes Hx Diphtheria, Pertussis, Tetanus Vaccination: Yes Physical Exam - Vital signs Vitals: Temp Pulse Resp BP Pulse Ox 98.9 F 72 14 107/60 99 05/30/18 14:08 05/30/18 14:08 05/30/18 14:08 05/30/18 14:08 05/30/18 14:08 Course - Vital Signs Vital signs: Temp Pulse Resp BP Pulse Ox 98.9 F 72 14 107/60 99 05/30/18 14:08 05/30/18 14:08 05/30/18 14:08 05/30/18 14:08 05/30/18 14:08
--- NOTE | 2018-05-30 16:09 | ER Document Report ---
ED General - General Chief Complaint: Toothache Stated Complaint: TOOTH ACHE Time Seen by Provider: 05/30/18 14:26 Mode of Arrival: Ambulatory Notes: Patient represents the emergency department for concern of soft tissue swelling and abscess of tooth #5. Patient was seen by myself and nurse practitioner yesterday digital nerve block was performed at tooth #5 apical block and nurse practitioner perform needle aspiration of abscess. Patient was provided clindamycin, has not filled that until today , has not taking any of her medications. She denies any fevers or chills but when she awoke she had soft tissue swelling of around her right lower periorbital and maxillary region of her face as well as her buccal region of the left facial cheek. Patient denies any problems swallowing no tongue or lip swelling no sore throat. TRAVEL OUTSIDE OF THE [place] IN LAST 30 DAYS: No - Related Data Allergies/Adverse Reactions: Penicillins Allergy (Severe, Verified 05/30/18 13:54) Past Medical History - General Information source: Patient - Social History Smoking Status: Current Every Day Smoker Frequency of alcohol use: Occasional Drug Abuse: None Family History: Arthritis, DM, Hypertension, Malignancy. denies: CAD, COPD, CVA , Hyperlipidemia, Thyroid Disfunction Patient has suicidal ideation: No Patient has homicidal ideation: No Neurological Medical History: Reports: Hx Migraine, Hx Seizures Renal/ Medical History: Denies: Hx Peritoneal Dialysis Psychiatric Medical History: Reports: Hx Attention Deficit Hyperactivity Disorder Past Surgical History: Reports: Hx Orthopedic Surgery - R leg - Immunizations Immunizations up to date: Yes Hx Diphtheria, Pertussis, Tetanus Vaccination: Yes Review of Systems - Review of Systems Constitutional: No symptoms reported EENT: See HPI Cardiovascular: No symptoms reported Respiratory: No symptoms reported Gastrointestinal: No symptoms reported Genitourinary: No symptoms reported Female Genitourinary: No symptoms reported Musculoskeletal: No symptoms reported Skin: No symptoms reported Hematologic/Lymphatic: No symptoms reported Neurological/Psychological: No symptoms reported Physical Exam - Vital signs Vitals: Temp Pulse Resp BP Pulse Ox 98.9 F 72 14 107/60 99 05/30/18 14:08 05/30/18 14:08 05/30/18 14:08 05/30/18 14:08 05/30/18 14:08 - General General appearance: Appears well, Alert - HEENT Head: Normocephalic, Atraumatic - Mild soft tissue swelling of the buccal area of right facial cheek with no induration or fluctuation with palpation of her buccal mucosa. No tenderness to palpation of inferior periorbital maxillary region of her face. Patient has tenderness to palpation of gingival area around tooth #5 with bogginess with what appears to be recurrent abscess. No tongue swelling normal oropharynx no Mac angina no cervical lymphadenopathy Eyes: Normal - Respiratory Respiratory status: No respiratory distress Breath sounds: Normal. No: Rales, Stridor, Wheezing - Cardiovascular Rhythm: Regular Heart sounds: Normal auscultation Murmur: No - Abdominal Inspection: Normal Distension: No distension Bowel sounds: Normal - Extremities General upper extremity: Normal inspection - Neurological Orientation: AAOx4 Course - Re-evaluation Re-evalutation: 05/30/18 16:07 Patient does have recurrent abscess will use 11 blade to incise abscess this time. Patient has normal vitals no fevers or chills and overall looks well. She has not failed outpatient therapy because she has not started her antibiotics yet. Will provide IV antibiotics in the emergency department and patient instructed to start taking antibiotics provided to her starting tonight taking a single dose and then as prescribed 4 times a day starting tomorrow. Do not feel imaging is warranted at this time as site of infection has been identified the patient is nontoxic appearing with normal vitals. Strict return precautions will be provided 05/30/18 17:03 Patient tolerated procedure well approximately 2 cc of purulence was drained. Patient does not have any cervical lymphadenopathy is no signs of Mac's angina and normal posterior oropharynx. Discussed with patient if symptoms not improving 24-48 hours return for reevaluation which point I stated she would likely have CT of maxillofacial area to ensure no other findings but right now I feel her symptoms are consistent with a gingival abscess that may extend into the apical region. She is not blowing her nose and produce any purulence and she is not toxic appearing with normal vitals. Did not feel her symptoms warrant imaging at this time. - Vital Signs Vital signs: Temp Pulse Resp BP Pulse Ox 98.9 F 72 14 107/60 99 05/30/18 14:08 05/30/18 14:08 05/30/18 14:08 05/30/18 14:08 05/30/18 14:08 Procedures - Incision and Drainage Right Face Type: Simple Anesthetic type: 0.5% Bupivacaine mL's of anesthetic: 4 Blade size: 11 Incision Method: Incision made by scalpel Amount/type of drainage: 2cc purulence, mild blood Notes: 05/30/18 17:02 Palpated buccal facial cheek which did not produce any purulence from incision Discharge - Discharge Clinical Impression: Abscess of upper gingiva Condition: Good Disposition: HOME, SELF-CARE Instructions: Abscess ([facility]), Clindamycin ([facility]) Additional Instructions: Please take clindamycin as prescribed starting tonight and make sure to finish all medications. Per previous conversation, please return the emergency department in the if you feel like symptoms are worsening. Please follow-up with your dentist with the earliest appointment possible to let them know you are at the emergency department for reevaluation. Prescriptions: Hydrocodone/Acetaminophen [[place] 5-325 mg Tablet] 1 - 2 tab PO ASDIR PRN #4 tablet PRN Reason:
[2018-05-30] MEDS ORDERED: BUPIVACAINE HCL 0.5%-EPI 1:200000 INJ/PF 30 ML VIAL INJ ONE (16:12)
[2018-05-30] MEDS ORDERED: CLINDAMYCIN 600 MG/D5W RTU 600 MG/50 ML RTUPB IV SCH (16:15)
[2018-05-30 17:18] VITALS: BP 106/58
== END 2018-05-30 17:17 | disposition home or self-care (01) ==
LOC: ER 13:53
DX: K05.219 Aggressive periodontitis, localized, unspecified severity (principal); T36.8X6A Underdosing of other systemic antibiotics, initial encounter; Z91.128 Patient's intentional underdosing of medication regimen for other reason; Z91.14 Patient's other noncompliance with medication regimen; K08.89 Other specified disorders of teeth and supporting structures; F17.200 Nicotine dependence, unspecified, uncomplicated; Z88.0 Allergy status to penicillin
CPT/HCPCS: 99283; 96365; 41800; J3490

== ENCOUNTER 2018-11-30 13:53 | Emergency (ER) | payer OTHER ==
[2018-11-30 14:37] VITALS: BP 106/52
[2018-11-30] MEDS ORDERED: KETOROLAC TROMETHAMINE 60 MG/2 ML SDV IM ONE (16:33)
--- NOTE | 2018-11-30 16:44 | ER Document Report ---
ED Medical Screen (RME) - General Chief Complaint: Cyst Stated Complaint: ABSCESS/VAGINAL AREA Time Seen by Provider: 11/30/18 16:26 Notes: Patient is a 27-year-old female that presents to the emergency department for chief complaint of Bartholin cyst. Patient states she is been having issues with a Bartholin cyst for several years, and seemingly worse over the last week, she is had to have them drained in the past, has not follow-up with an [employer] because she has not had insurance until recently. ROS: Other than noted above, the 12 point review of systems was reviewed with the patient and were negative, all pertinent findings are included in the HPI. PHYSICAL EXAMINATION: Vital signs reviewed. GENERAL: Appears uncomfortable HEAD: Atraumatic, normocephalic. EYES: Pupils equal round extraocular movements intact, conjunctiva are normal. ENT: Nares patent NECK: Normal range of motion CV: Heart regular rate and rhythm LUNGS: No respiratory distress Musculoskeletal: Normal range of motion NEUROLOGICAL: Normal speech PSYCH: Normal mood, normal affect. MDM: Patient seen and examined for rapid initial assessment. Vital signs reviewed. A comprehensive ED assessment and evaluation of the patient, analysis of test re sults and completion of the medical decision making process will be conducted by additional ED providers. *Note is created using voice recognition software and may contain spelling, syntax or grammatical errors. TRAVEL OUTSIDE OF THE [place] IN LAST 30 DAYS: No - Related Data Allergies/Adverse Reactions: Penicillins Allergy (Severe, Verified 05/30/18 13:54) Past Medical History Neurological Medical History: Reports: Hx Migraine, Hx Seizures Renal/ Medical History: Denies: Hx Peritoneal Dialysis Psychiatric Medical History: Reports: Hx Attention Deficit Hyperactivity Disorder Past Surgical History: Reports: Hx Orthopedic Surgery - R leg - Immunizations Immunizations up to date: Yes Hx Diphtheria, Pertussis, Tetanus Vaccination: Yes Physical Exam - Vital signs Vitals: Temp Pulse Resp BP Pulse Ox 99.2 F 77 16 106/52 L 97 11/30/18 14:36 11/30/18 14:36 11/30/18 14:36 11/30/18 14:36 11/30/18 14:36 Course - Vital Signs Vital signs: Temp Pulse Resp BP Pulse Ox 99.2 F 77 16 106/52 L 97 11/30/18 14:36 11/30/18 14:36 11/30/18 14:36 11/30/18 14:36 11/30/18 14:36
--- NOTE | 2018-11-30 18:27 | ER Document Report ---
HPI - HPI Time Seen by Provider: 11/30/18 16:26 Pain Level: 4 Context: Patient is a 27 year old female who presents to the emergency department with a chief complaint of pain and raised area to her right labia. Her symptoms started 3 days ago and states that she has severe pain. Reports a raised bump to the area. She has had problems with Bartholin gland cysts in the past. Her last drainage was in 2016, but has not followed up with an OBGYN because she has not had insurance. - CONSTITUTIONAL Constitutional: DENIES: Fever, Chills - NEURO Neurology: DENIES: Headache, Weakness, Dizzinesss / Vertigo - CARDIOVASCULAR Cardiovascular: DENIES: Chest pain - RESPIRATORY Respiratory: DENIES: Trouble Breathing - GASTROINTESTINAL Gastrointestinal: DENIES: Abdominal Pain, Patient vomiting - URINARY Urinary: DENIES: Dysuria - REPRODUCTIVE Reproductive: DENIES: : Notes: Pain to right labial area - DERM Skin Color: Normal Past Medical History - Social History Smoking Status: Unknown if Ever Smoked Family History: Arthritis, DM, Hypertension, Malignancy. denies: CAD, COPD, CVA, Hyperlipidemia, Thyroid Disfunction Patient has suicidal ideation: No Patient has homicidal ideation: No Neurological Medical History: Reports: Hx Migraine, Hx Seizures Renal/ Medical History: Denies: Hx Peritoneal Dialysis Psychiatric Medical History: Reports: Hx Attention Deficit Hyperactivity Disorder Past Surgical History: Reports: Hx Orthopedic Surgery - R leg - Immunizations Immunizations up to date: Yes Hx Diphtheria, Pertussis, Tetanus Vaccination: Yes Vertical Provider Document - CONSTITUTIONAL Agree With Documented VS: Yes Exam Limitations: No Limitations - INFECTION CONTROL TRAVEL OUTSIDE OF THE [place] IN LAST 30 DAYS: No - HEENT HEENT: Atraumatic, Normocephalic - NECK Neck: Normal Inspection - RESPIRATORY Respiratory: Breath Sounds Normal, No Respiratory Distress - CARDIOVASCULAR Cardiovascular: Regular Rate, Regular Rhythm Pulses: Normal: Brachial - GI/ABDOMEN Gastrointestinal: Abdomen Soft - REPRODUCTIVE Notes: See diagram - MUSCULOSKELETAL/EXTREMETIES Musculoskeletal/Extremeties: FROM - NEURO Level of Consciousness: Awake, Alert, Appropriate Motor/Sensory: No Motor Deficit, No Sensory Deficit - DERM Integumentary: Warm, Dry Course - Re-evaluation Re-evalutation: An incision and drainage was done at bedside. See procedure Physical exam is consistent with a Bartholin Gland cyst. The fluid that was drained was not purulent, but definitely cystic fluid because it was clear. A Word catheter was place in the area. No cellulitus was noted. She is to follow up with [facility] in regards to this visit. Verbal discharge instructions were given to the patient. They verbalized understanding. They are stable for discharge. - Vital Signs Vital signs: Temp Pulse Resp BP Pulse Ox 99.2 F 77 16 106/52 L 97 11/30/18 14:36 11/30/18 14:36 11/30/18 14:36 11/30/18 14:36 11/30/18 14:36 Procedures - Incision and Drainage Right Bartholin gland Type: Simple Anesthetic type: 1% Lidocaine mL's of anesthetic: 2 Blade size: 11 I&D procedure: Betadine prep applied, Other - Word Catheter placed Incision Method: Incision made by scalpel Amount/type of drainage: 15 mls; clear cystic fluid Female anatomy: 1 - Bartholin gland cyst Discharge - Discharge Clinical Impression: Bartholin gland cyst Condition: Stable Disposition: HOME, SELF-CARE Additional Instructions: You were seen in the emergency department for a Bartholin Gland cyst. Since the cyst is recurring, please follow up with [facility] to have your cyst evaluated. A catheter called a Word Catheter was place in the cyst area. Please leave that catheter in the area until you [facility]. You may take sitz baths to help with comfort. You may take motrin or tylenol as needed for pain. Antibiotics are not indicated for these cysts. If you develop a fever, have redness to the are, or have any symptoms that are worrisome to you, please return to the emergency department. Referrals: [facility] [Provider Group] - 12/01/18
== END 2018-11-30 19:00 | disposition home or self-care (01) ==
LOC: ER 13:53
DX: N75.0 Cyst of Bartholin's gland (principal)
CPT/HCPCS: 99282; 96372; 56420; J1885

== ENCOUNTER 2019-06-11 19:01 | Emergency (ER) | payer OTHER ==
[2019-06-11] MEDS ORDERED: LIDOCAINE 5% (700 MG) TRANSDERMAL ADH..PATCH TP ONE (19:23)
[2019-06-11] MEDS ORDERED: IBUPROFEN 800 MG TABLET PO ONE (19:23)
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
[2019-06-11 20:30] VITALS: BP 101/51
== END 2019-06-11 20:30 | disposition home or self-care (01) ==
LOC: ER 19:01
DX: M54.5 Low back pain (principal); V89.2XXA Person injured in unspecified motor-vehicle accident, traffic, initial encounter; F17.200 Nicotine dependence, unspecified, uncomplicated
CPT/HCPCS: 72110; 99283

== ENCOUNTER 2020-04-29 21:03 | Emergency (ER) | payer OTHER ==
[2020-04-29 21:09] VITALS: BP 110/57
[2020-04-29] MEDS ORDERED: CLINDAMYCIN HCL 150 MG CAPSULE PO ONE (21:14)
[2020-04-29] MEDS ORDERED: OXYCODONE-ACETAMINOPHEN 5-325 MG TABLET PO ONE (21:14)
[2020-04-29] MEDS ORDERED: LIDOCAINE 2% VISCOUS SOLN 15 ML UDCUP PO ONE (21:15)
--- NOTE | 2020-04-29 21:17 | ER Document Report ---
HPI - HPI Time Seen by Provider: 04/29/20 21:11 Notes: Patient is a 29-year-old female presents emergency department chief complaint of right lower dental pain. Patient reports she has had issues with this area before. She has had abscesses in this area and she has also had a root canal. Patient denies any fever or nausea. She reports pain has been going on for the last 3 days. She states it causes throbbing. - ROS Systems Reviewed and Negative: Yes All other systems reviewed and negative - EENT Notes: Dental pain - REPRODUCTIVE Reproductive: DENIES: : Past Medical History - General Information source: Patient - Social History Smoking Status: Never Smoker Frequency of alcohol use: None Drug Abuse: None Family History: Arthritis, DM, Hypertension, Malignancy. denies: CAD, COPD, CVA, Hyperlipidemia, Thyroid Disfunction Neurological Medical History: Reports: Hx Migraine, Hx Seizures Renal/ Medical History: Denies: Hx Peritoneal Dialysis Psychiatric Medical History: Reports: Hx Attention Deficit Hyperactivity Disorder Past Surgical History: Reports: Hx Orthopedic Surgery - R leg - Immunizations Immunizations up to date: Yes Hx Diphtheria, Pertussis, Tetanus Vaccination: Yes Vertical Provider Document - CONSTITUTIONAL Notes: PHYSICAL EXAMINATION: GENERAL: Well-appearing, well-nourished and in no acute distress. HEAD: Atraumatic, normocephalic. EYES: Pupils equal round extraocular movements intact, conjunctiva are normal. ENT: Nares patent, erythema noted around tooth #29, 30 and 31. No salma abscess. No trismus. No facial swelling. NECK: Normal range of motion LUNGS: No respiratory distress Musculoskeletal: Normal range of motion NEUROLOGICAL: Normal speech, normal gait. PSYCH: Normal mood, normal affect. SKIN: Warm, Dry, normal turgor, no rashes or lesions noted. - INFECTION CONTROL TRAVEL OUTSIDE OF THE [place] IN LAST 30 DAYS: No Course - Re-evaluation Re-evalutation: Presentation is most consistent with likely an infected tooth. Airway is patent. Vitals within normal limits. Patient is able swallow without any difficulty. There is no significant facial swelling. No evidence of Mac angina, apical abscess, or airway obstruction. Patient will be started on antibiotics. I've instructed to follow-up with dentistry as earliest ability for definitive management. At this time will discharge with return precautions and follow-up recommendations. Verbal discharge instructions given a the bedside and opportunity for questions given. Medication warnings reviewed. Patient is in agreement with this plan and has verbalized understanding of return precautions and the need for primary care follow-up in the next 24-72 hours. - Vital Signs Vital signs: Temp Pulse Resp BP Pulse Ox 98.6 F 72 16 110/57 L 99 04/29/20 21:08 04/29/20 21:08 04/29/20 21:08 04/29/20 21:08 04/29/20 21:08 Discharge - Discharge Clinical Impression: Dental infection Condition: Stable Disposition: HOME, SELF-CARE Additional Instructions: You have been seen for dental pain. It is very important that you follow-up with a dentist for definitive care. Please return if you develop fever greater than 101, swelling in your face, vomiting, difficulty breathing or swallowing, or any other symptoms that are concerning to you. For pain you should take ibuprofen 800 mg every 8 hours as needed. Prescriptions: Clindamycin HCl [Cleocin 150 mg Capsule] 300 mg PO Q6 #42 capsule Forms: Return to Work
== END 2020-04-29 21:30 | disposition home or self-care (01) ==
LOC: ER 21:03
DX: K04.7 Periapical abscess without sinus (principal); K08.89 Other specified disorders of teeth and supporting structures
CPT/HCPCS: 99282; J3490

== ENCOUNTER 2020-05-01 13:32 | Emergency (ER) | payer SELFPAY ==
[2020-05-01 13:37] VITALS: BP 116/65
--- NOTE | 2020-05-01 15:07 | ER Document Report ---
HPI - HPI Patient complains to provider of: Dental Pain Time Seen by Provider: 05/01/20 14:53 Pain Level: 5 Context: 30-year-old female no previous medical problem presents to the emergency room complaining of worsening right-sided dental pain. pain is now radiating into her right ear. Patient states she was seen here on Friday was prescribed clindamycin and told to take Tylenol is not helping with the pain. States she told him on Friday she was here for pain medication continues to request pain medication today. has not been unable to see her primary care physician or dentist secondary to COVID is able to tolerate p.o. fluids but is painful to swallow and painful to chew. Associated Symptoms: None Exacerbated by: Other - Chewing and swallowing Relieved by: Denies Similar symptoms previously: Yes Recently seen / treated by doctor: Yes - Seen in ED 2 days ago - ROS Systems Reviewed and Negative: Yes All other systems reviewed and negative - CONSTITUTIONAL Constitutional: DENIES: Fever - EENT EENT: REPORTS: Ear Pain. DENIES: Sore Throat - CARDIOVASCULAR Cardiovascular: DENIES: Chest pain - RESPIRATORY Respiratory: DENIES: Trouble Breathing, Coughing - REPRODUCTIVE Reproductive: DENIES: : - DERM Skin Color: Normal Past Medical History - General Information source: Patient - Social History Smoking Status: Current Every Day Smoker Chew tobacco use (# tins/day): No Frequency of alcohol use: None Drug Abuse: None Family History: Arthritis, DM, Hypertension, Malignancy. denies: CAD, COPD, CVA, Hyperlipidemia, Thyroid Disfunction Patient has homicidal ideation: No Neurological Medical History: Reports: Hx Migraine, Hx Seizures Renal/ Medical History: Denies: Hx Peritoneal Dialysis Psychiatric Medical History: Reports: Hx Attention Deficit Hyperactivity Disorder Past Surgical History: Reports: Hx Orthopedic Surgery - R leg - Immunizations Immunizations up to date: Yes Hx Diphtheria, Pertussis, Tetanus Vaccination: Yes Vertical Provider Document - CONSTITUTIONAL Agree With Documented VS: Yes Exam Limitations: No Limitations General Appearance: Mild Distress - INFECTION CONTROL TRAVEL OUTSIDE OF THE [place] IN LAST 30 DAYS: No - HEENT HEENT: Atraumatic, Normocephalic. negative: Pharyngeal Erythema, Tympanic Membrane Red, Tympanic Membrane Bulging Mouth Diagram: 1 - erythema, swelling nonfluctuant abscess noted - NECK Neck: Normal Inspection, Supple. negative: Lymphadenopathy-Left, Lymphadenopathy-Right - RESPIRATORY Respiratory: Breath Sounds Normal, No Respiratory Distress, Chest Non-Tender - CARDIOVASCULAR Cardiovascular: Regular Rate, Regular Rhythm, No Murmur - MUSCULOSKELETAL/EXTREMETIES Musculoskeletal/Extremeties: FROM, Non-Tender - NEURO Level of Consciousness: Awake, Alert, Appropriate Motor/Sensory: No Motor Deficit, No Sensory Deficit - DERM Integumentary: Warm, Dry, No Rash Course - Re-evaluation Re-evalutation: 05/01/20 15:01 Reviewed diagnosis with patient. Counseled that we do not prescribe narcotics for dental pain. Will discharge home with a prescription for Toradol. Counseled need to follow-up with a dentist as soon as possible. Continue with the clindamycin. Encourage fluids. Patient was given strict return to the emergency room guidelines. Return for any new or worsening symptoms. All questions were answered. Patient verbalized understanding and agrees with plan of care. 05/01/20 16:47 - Vital Signs Vital signs: Temp Pulse Resp BP Pulse Ox 98.2 F 77 18 116/65 98 05/01/20 13:36 05/01/20 13:36 05/01/20 13:36 05/01/20 13:36 05/01/20 13:36 Discharge - Discharge Clinical Impression: Pain, dental Condition: Stable Disposition: HOME, SELF-CARE Instructions: Toothache ([facility]) Additional Instructions: Soft diet, encourage fluids, continue with clindamycin. Take Toradol as prescribed. Outpatient follow-up with a dentist as soon as possible. Return to the emergency room for any new or worsening symptoms. Prescriptions: Ketorolac Tromethamine [Toradol 10 mg Tablet] 10 mg PO Q6HP PRN #12 tablet PRN Reason: Referrals: [facility] [NO LOCAL MD] - Follow up as needed [facility] [Provider Group] - Follow up as needed
== END 2020-05-01 15:08 | disposition home or self-care (01) ==
LOC: ER 13:32
DX: K08.9 Disorder of teeth and supporting structures, unspecified (principal); H92.01 Otalgia, right ear; F17.200 Nicotine dependence, unspecified, uncomplicated
CPT/HCPCS: 99282